=== PATIENT | female | born 1975 | race Caucasian/White ===

== ENCOUNTER → 2018-05-07 | Outpatient (CLI) | payer OTHER ==
[2016-08-27 05:00] VITALS: BP 121/84
--- NOTE | 2018-05-07 18:20 | KCIC ---
Bilateral diagnostic digital mammograms: Reason for examination: Left breast lump with pain at the 12:00 position starting 2 months ago. Pain comes and goes with menstrual cycles. No symptoms currently. Baseline exam. Interpretation was made with the benefit of CAD. The skin and nipples show no abnormalities. No abnormal axillary lymph nodes are seen. The breast parenchyma is heterogeneously dense. (Breast density: Category C.) There appears be some nodular asymmetry posterior inferiorly in the right oblique view with no definite correlate seen on cc view. There is also suggestion of a small nodular density laterally at approximately the 1:00 B position of the left breast. Further evaluation with ultrasound will follow. There are no suspicious calcifications. Impression: Nodular asymmetry in the right breast on oblique view. Small nodular density suggested at the 1:00 B position of the left breast. Ultrasound to follow. Your patient's mammogram demonstrates that she has dense breast tissue (breast density category C or D), which could hide abnormalities, and if she has other risk factors for breast cancer that have been identified, she might benefit from supplemental screening tests that may be suggested by you as her ordering physician. Dense breast tissue, in and of itself, is a relatively common condition. Therefore, this information is not provided to cause undue concern, but rather to raise your awareness and to promote discussion with your patient regarding the presence of other risk factors, in addition to dense breast tissue. Your patient's mammography results will be sent to her. BI-RAD Category 0: Incomplete. Needs additional imaging evaluation. Bilateral breast ultrasound: Bilateral breast ultrasound was performed with attention to the areas of mammographic concern and in the retroareolar and axillary regions. The right breast shows presence of several small cystic/fibrocystic lesions with the largest located at the 9:30 position 8 cm from the nipple measuring 5.9 mm in size. A small nodule with calcification is seen anteriorly at the 9:30 position consistent with a cyst degenerating fibroadenoma. There are no suspicious-appearing nodules seen. No abnormal appearing lymph nodes are seen in the axilla. The left breast shows no discrete cystic or solid nodules. No abnormal appearing lymph nodes are seen in the axilla. IMPRESSION: Benign-appearing cystic/fibrocystic lesions in the right breast which are subcentimeter in size. 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 No focal suspicious abnormality seen in the left breast. Recommend 6 month follow-up with mammograms and ultrasound. BI-RADS Category 3: Probably Benign. "Our facility is accredited by the [employer] Mammography [employer]." This patient's information has been entered into a reminder system for the patient to be notified with the results of her examination and a target date for the next mammogram. Electronically signed by: Mildred Yu MD (05/07/2018 6:17 PM) [id number]
== END | disposition home or self-care (01) ==
LOC: KCIC MAMMO 08:52
PROVIDERS: ATTEND Nurse Practitioner Family
DX: N63.21 Unspecified lump in the left breast, upper outer quadrant (principal)
CPT/HCPCS: 76641; 77066

== ENCOUNTER → 2019-06-04 | Outpatient (CLI) | payer OTHER ==
[2016-08-27 05:00] VITALS: BP 121/84
--- NOTE | 2019-06-04 13:12 | KCIC ---
Bilateral diagnostic digital mammograms: Reason for examination: Follow-up fibrocystic changes.. Comparison is made to previous mammographic and sonographic examinations dated 05/07/2018. Interpretation was made with the benefit of CAD. The skin and nipples show no abnormalities. No abnormal axillary lymph nodes are seen. The breast parenchyma is heterogeneously dense. (Breast density: Category C.) There continues to be a small calcific density at the 9:00 position anteriorly in the right breast consistent with a degenerating fibroadenoma. The parenchymal density seen posterior inferiorly on the right oblique view does not show significant change. There are no new dominant masses, suspicious calcifications or architectural distortion. Impression: Continued presence of a small parenchymal density posterior inferiorly in the right breast on oblique view without significant change. Ultrasound to follow. Your patient's mammogram demonstrates that she has dense breast tissue (breast density category C or D), which could hide abnormalities, and if she has other risk factors for breast cancer that have been identified, she might benefit from supplemental screening tests that may be suggested by you as her ordering physician. Dense breast tissue, in and of itself, is a relatively common condition. Therefore, this information is not provided to cause undue concern, but rather to raise your awareness and to promote discussion with your patient regarding the presence of other risk factors, in addition to dense breast tissue. Your patient's mammography results will be sent to her. BI-RAD Category 0: Incomplete. Needs additional imaging evaluation. Bilateral breast ultrasound: Bilateral whole breast ultrasound including evaluation of all 4 quadrants and the retroareolar and axillary regions of both breasts was performed. The right breast continues to show a degenerative fibroadenoma at this 9:30 position 4 cm from the nipple measuring 7.4 mm in greatest dimension. There continues to be a small fibrocystic lesion at the 8:30 position 7.5 cm from the nipple measuring 4.6 mm in greatest dimension. No new cystic or solid nodules are seen. No abnormal appearing lymph nodes are seen in right axilla. The left breast shows no discrete cystic or solid nodules. No abnormal appearing lymph nodes are seen in the left axilla. IMPRESSION: Small nodules persist in the right breast consistent with a degenerating fibroadenoma and fibrocystic lesion. Recommend continued 6 month follow-up right breast ultrasound. BI-RADS Category 3: Probably Benign. "Our facility is accredited by the [employer] Mammography [employer]." This patient's information has been entered into a reminder system for the patient to be notified with the results of her examination and a target date for the next mammogram. Electronically signed by: Mildred Yu MD (06/04/2019 1:09 PM) [id number]
== END | disposition home or self-care (01) ==
LOC: KCIC MAMMO 08:48
PROVIDERS: ATTEND Nurse Practitioner Family
DX: N63.10 Unspecified lump in the right breast, unspecified quadrant (principal); N64.89 Other specified disorders of breast
CPT/HCPCS: 76641; 77066

== ENCOUNTER → 2020-04-26 | Outpatient (CLI) | payer OTHER ==
[2016-08-27 05:00] VITALS: BP 121/84
--- NOTE | 2020-04-26 10:32 | KCIC ---
Bilateral diagnostic digital mammograms with 3-D tomosynthesis: Reason for examination: Follow-up right breast nodules. Comparison is made to previous studies dated 06/04/2019 and 05/07/2018. Bilateral mammograms in CC and oblique projections were obtained with 2-D imaging and 3-D tomosynthesis imaging on a Siemens Inspiration unit and reviewed on the workstation. Interpretation was made with the benefit of CAD. The skin and nipples show no abnormalities. No abnormal axillary lymph nodes are seen. The breast parenchyma is heterogeneously dense. (Breast density: Category C.) There continues to be parenchymal asymmetry in the right breast inferiorly which is unchanged. There also appears to be a small nodular density in the left breast anterior laterally probably around the 3:00 position. Further evaluation with ultrasound will follow. There are no other dominant masses, suspicious calcifications or architectural distortion. Benign calcification is seen anteriorly in the right breast unchanged. Impression: Parenchymal asymmetry in the right breast inferiorly without definite change. New nodular density at approximately the 3:00 B position of the left breast. Ultrasound to follow. Your patient's mammogram demonstrates that she has dense breast tissue (breast density category C or D), which could hide abnormalities, and if she has other risk factors for breast cancer that have been identified, she might benefit from supplemental screening tests that may be suggested by you as her ordering physician. Dense breast tissue, in and of itself, is a relatively common condition. Therefore, this information is not provided to cause undue concern, but rather to raise your awareness and to promote discussion with your patient regarding the presence of other risk factors, in addition to dense breast tissue. Your patient's mammography results will be sent to her. BI-RAD Category 0: Incomplete. Needs additional imaging evaluation. Bilateral breast ultrasound: Ultrasound examination was performed bilaterally of the breasts and axilla. The right breast continues to show a 5.2 mm hypoechoic circumscribed nodule at the 8:30 position 7.5 cm from the nipple which shows no significant interval change. There also continues be a calcified nodule at the 9:30 position 4 cm from the nipple consistent with a degenerating fibroadenoma measuring 7.4 mm in greatest dimension which shows no interval change. No new cystic or solid lesions are seen. No abnormal appearing lymph nodes are seen in the right axilla. In the left breast at the 3:00 position 7 cm from the nipple, there is a 6.1 mm cyst. 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 No other cystic or solid lesions are seen. No abnormal appearing lymph nodes are seen in the axilla. IMPRESSION: No significant change in the right breast nodules at the 8:30 and 9:30 positions. Small cystic lesion at the 3:00 position of the left breast. Some heterogeneity to the parenchyma at the 3:00 to 4:00 position of the left breast. Recommend 6 month follow-up with ultrasound. BI-RADS Category 3: Probably Benign. "Our facility is accredited by the [employer] Mammography [employer]." This patient's information has been entered into a reminder system for the patient to be notified with the results of her examination and a target date for the next mammogram. Electronically signed by: Mildred Yu MD (04/26/2020 10:29 AM) [id number]
== END ==
LOC: KCIC MAMMO 08:06
PROVIDERS: ATTEND Nurse Practitioner Family
DX: R92.1 Mammographic calcification found on diagnostic imaging of breast (principal); N63.21 Unspecified lump in the left breast, upper outer quadrant; N63.13 Unspecified lump in the right breast, lower outer quadrant
CPT/HCPCS: 76641; 77066; G0279; 77062

== ENCOUNTER → 2021-09-12 | Outpatient (CLI) | payer OTHER ==
[2016-08-27 05:00] VITALS: BP 121/84
--- NOTE | 2021-09-12 13:26 | KCIC ---
Bilateral digital screening 2-D and 3-D (tomosynthesis) mammogram, targeted right breast ultrasound: Reason for examination: Follow-up of probably benign masses. Comparison is made to previous mammograms from 04/26/2020 , 06/04/2019, 05/07/2018. Previous bilateral breast ultrasound from 04/26/2020 and right breast ultra sound from 06/04/2019. Bilateral mammograms in CC and oblique projections were obtained with 2-D imaging and 3-D tomosynthes is imaging and reviewed on the workstation. Interpretation was made with the benefit of CAD. FINDINGS MAMMOGRAM: Breast density: Category C. The breasts are heterogeneously dense, which may obscure small masses. There are no suspicious masses, malignant appearing calcifications or architectural distortion. There is a area of popcorn-type calcification in the right breast at 9:30 about 4 cm from the nipple, cons istent with a degenerated fibroadenoma. There is a 7 mm asymmetry in the 10:00 region of the right br east at posterior depth which is stable. There is a 9 mm asymmetry in the 10:00 position of the left breast which is unchanged. FINDINGS TARGETED RIGHT BREAST ULTRASOUND: The area previously noted masses was evaluated right axilla was imaged. In the 8:30 position, 6 cm from the nipple, there is a 7 mm benign intramammary lymph node. It may no t represent the same mass identified in the 2019 ultrasound, however, no other lesion is identified i n this location. Again seen is a partially calcified 7 mm mass in the 9:30 position, 4 cm from the ni pple, which correlates with a degenerated fibroadenoma seen on mammogram. No axillary right adenopath y is seen. Impression: No evidence of malignancy. There is a small benign intramammary lymph node in the 8:30 position right breast, 6 cm from the nipple in the small partially calcified fibroadenoma 9:30 position right breas t, 4 cm from the nipple. Routine annual mammograms are recommended. ASSESSMENT: BI-RADS 2. Benign findings Recommendations: Routine screening mammograms. Results are given to the patient at time of examination. This patient's information has been entered into a reminder system for the patient to be notified with the results of her examination and a targe t date for the next mammogram. Your patient's mammogram demonstrates that she has dense breast tissue (breast density category C or D), which could hide abnormalities, and if she has other risk factors for breast cancer that have bee n identified, she might benefit from supplemental screening tests that may be suggested by you as her ordering physician. Dense breast tissue, in and of itself, is a relatively common condition. Therefo re, this information is not provided to cause undue concern, but rather to raise your awareness and t o promote discussion with your patient regarding the presence of other risk factors, in addition to d ense breast tissue. Electronically signed by: Tiffany Conway MD (09/12/2021 1:23 PM) [id number]
== END ==
LOC: KCIC MAMMO 08:56
PROVIDERS: ATTEND Nurse Practitioner Family
DX: N63.11 Unspecified lump in the right breast, upper outer quadrant (principal); R92.8 Other abnormal and inconclusive findings on diagnostic imaging of breast
CPT/HCPCS: 76641; 77066; G0279; 77062